=== PATIENT | male | born 1995 | race African-American/Black ===

== ENCOUNTER 2017-08-13 02:02 | Emergency (ER) | payer OTHER ==
[~2017-08-13] VITALS: Ht 182.9 cm; Wt 85.0 kg
--- NOTE | 2017-08-13 04:40 | REPUSA ---
HISTORY: Trauma. COMPARISON: None. TECHNIQUE: Multiple thin section helically-acquired axially-displayed and helically acquired coronall y displayed computed tomographic images of the face are obtained from the mandible through the fronta l sinuses, with images obtained at soft tissue and bone window. 2D reformatted images were performed. FINDINGS: Normal bony mineralization. No fractures. Normal orbits. Normal, clear paranasal sinuses. Normal oral and nasal cavities. Normal infratemporal fossa and deep parapharyngeal spaces with normal muscles of mastication. Normal parotid and submandibular glands. IMPRESSION: Normal examination of the face. Thank you for your kind referral of this patient
[2017-08-13] MEDS ORDERED: BUPIVACAINE HCL 0.5% 10 ML VIAL SC ONE (05:00)
[2017-08-13] MEDS ORDERED: LIDOCAINE W/EPINEPHRINE 1% 20ML VIAL SC ONE (05:00)
[2017-08-13] MEDS ORDERED: ACETAMINOPHEN TAB 650MG DOSE (2X325MG) PO ONE (05:45)
[2017-08-13] MEDS ORDERED: AUGM875T28 PO (05:55)
[2017-08-13 06:22] VITALS: BP 125/61
== END 2017-08-13 06:24 | disposition home or self-care (01) ==
LOC: M ED 02:02
DX: S01.01XA Laceration without foreign body of scalp, initial encounter (principal); S01.511A Laceration without foreign body of lip, initial encounter; Y04.8XXA Assault by other bodily force, initial encounter; Y92.410 Unspecified street and highway as the place of occurrence of the external cause; Y93.89 Activity, other specified; Y99.8 Other external cause status

== ENCOUNTER 2018-02-19 14:32 | Emergency (ER) | payer OTHER ==
[2018-02-19] MEDS: PERCOCET 5MG/325MG TAB PO (15:25)
== END 2018-02-19 18:14 | disposition home or self-care (01) ==
LOC: M ED 14:32
DX: S97.82XA Crushing injury of left foot, initial encounter (principal); W23.0XXA Caught, crushed, jammed, or pinched between moving objects, initial encounter; Y92.89 Other specified places as the place of occurrence of the external cause; Z87.891 Personal history of nicotine dependence
CPT/HCPCS: 73630

== ENCOUNTER 2020-06-28 12:28 | Emergency (ER) | payer OTHER, SELFPAY ==
[~2020-06-28 12:28] MED LIST: AUGM875T28 PO; HYDR-3715 PO
[2020-06-28] MEDS ORDERED: LIDOCAINE 2% MDV 20ML VIAL As Ordered ONE (18:12)
[2020-06-28] MEDS ORDERED: BOOSTRIX/ADACEL VACCINE (DIPHTH/PERTUSS/ACELL/TETANUS) 0.5ML SYR As Ordered ONE (18:12)
== END 2020-06-28 19:05 | disposition home or self-care (01) ==
LOC: M ED 12:28
DX: S01.511A Laceration without foreign body of lip, initial encounter (principal); V49.9XXA Car occupant (driver) (passenger) injured in unspecified traffic accident, initial encounter; Y92.410 Unspecified street and highway as the place of occurrence of the external cause; K08.89 Other specified disorders of teeth and supporting structures

== ENCOUNTER 2020-07-06 09:05 | Emergency (ER) | payer OTHER, SELFPAY | END 2020-07-06 09:58 | disposition home or self-care (01) | LOC: M ED 09:05 | DX: Z48.02 Encounter for removal of sutures (principal) ==